=== PATIENT | female | born 1950 | race Caucasian/White ===

== ENCOUNTER → 2016-03-26 11:54 | Outpatient (CLI) | payer MEDICARE, BC ==
[2015-11-09 09:46] VITALS: BMI 35.5
[~2016-03-26 11:54] MED LIST: ACCUPRIL20 MG PO; ATIVAN1 MG PO; CALTRATE 600 M600 M1 PO; CYMBALTA60 MG PO; HYDROCODONE-APA1 TAB PO; LIPITOR10 MG PO; NAMENDA5 MG PO; NORVASC5 MG PO; OMEPRAZOLE20 M1 PO; SYNTHROID25 MCG PO; VITAMIN D2000 UNIT PO
== END | disposition home or self-care (01) ==
LOC: D.RT 11:54
DX: M54.5 Low back pain (principal); R06.02 Shortness of breath

== ENCOUNTER 2016-05-09 08:00 | Outpatient (CLI) | payer MEDICARE, BC ==
[2016-05-09 14:29] VITALS: Ht 160 cm
== END 2016-05-09 23:59 | disposition home or self-care (01) ==
LOC: D.OPS 08:00
DX: M81.0 Age-related osteoporosis without current pathological fracture (principal)

== ENCOUNTER 2016-07-23 13:56 | Outpatient (CLI) | payer MEDICARE, BC | END 2016-07-23 14:21 | LOC: D.MAMMO 13:56 | DX: Z12.31 Encounter for screening mammogram for malignant neoplasm of breast (principal) ==

== ENCOUNTER 2016-11-25 12:39 | Outpatient (CLI) | payer MEDICARE, BC ==
[2016-11-25] MEDS ORDERED: KLONOPIN0.5 MG PO (14:32)
[2016-11-25 14:36] VITALS: BP 183/86; BMI 39.0
[2017-01-21] MEDS ORDERED: LYRICA50 MG PO (10:35)
[2017-01-21] MEDS ORDERED: TOVIAZ8 MG PO (10:36)
== END 2016-11-25 14:35 | disposition home or self-care (01) ==
LOC: D.OPS 12:39
DX: M81.0 Age-related osteoporosis without current pathological fracture (principal)

== ENCOUNTER → 2016-12-30 18:45 | Outpatient (CLI) | payer MEDICARE, BC ==
[~2016-12-30 18:45] MED LIST changes: +KLONOPIN0.5 MG PO; +LYRICA50 MG PO; +TOVIAZ8 MG PO
== END | disposition home or self-care (01) ==
LOC: D.LABREF 18:45
DX: R31.9 Hematuria, unspecified (principal)

== ENCOUNTER → 2017-01-02 13:31 | Outpatient (CLI) | payer MEDICARE, BC | END | disposition home or self-care (01) | LOC: D.US 13:31 | DX: R31.9 Hematuria, unspecified (principal) ==

== ENCOUNTER 2017-01-22 05:18 | Day surgery (SDC) | payer MEDICARE, BC ==
[2017-01-21 11:51] LABS: HEMATOCRIT 44.3 % (36.0-48.0); HEMOGLOBIN 14.6 g/dL (12-16); MCH 33.2 pg (26.0-34.0); MCV 100.7 fL (80.0-100.0); MEAN PLATELET VOLUME 9.9 fL (7.4-10.4); RBC 4.4 10x6/uL (4.00-5.40); RDW 13.5 % (11.5-14.5); WBC 9.7 10x3/uL (4.8-10.8)
[~2017-01-22] VITALS: Ht 160 cm; Wt 102.5 kg
[2017-01-22 08:13] VITALS: BP 157/77; Ht 160 cm; Wt 102.5 kg
--- NOTE | 2017-01-22 09:29 | NUR ---
IV SITED WITH ULTRASOUND BY ANESTHESIA.
--- NOTE | 2017-01-22 11:09 | NUR ---
1110 DISCHARGE INSTRUCTIONS COMPLETE. PT HAS NO QUESTIONS OR CONCERNS AT THIS TIME. FOLLOW UP APPOINTMENT GIVEN. ESCORTED OUT BY VOLUNTEER.
--- NOTE | 2017-01-22 12:49 | OP ---
PATIENT NAME: PEGGY FIGUEROA MEDICAL RECORD: [id number] LOCATION:D.OPS ADMISSION DATE: SURGEON: KRIS COELLO MD DATE OF OPERATION: 01/22/2017 SURGEON: Kris Coello MD ANESTHESIA: MAC by Francisco J Camarena MD PREOPERATIVE DIAGNOSIS: Microhematuria. POSTOPERATIVE DIAGNOSIS: Microhematuria. PROCEDURE: Cystoscopy. FINDINGS: Bladder inflammation. No bladder tumors. BLOOD LOSS: None. CLINICAL HISTORY: This is a 66-year-old female who was initially referred for urinary incontinence including urgency and possibly some stress. She also had issues with nocturia times 2 to 3 and dyspareunia. She has had a hysterectomy in the past. While we examined her urinalysis, we noted that she had microscopic hematuria. She had an ultrasound of the kidneys, which was completely normal. We did an ultrasounds instead of a CT as SHE IS ALLERGIC TO IVP DYE. Urine cytology was performed and it was negative for high-grade urothelial carcinoma. She comes today to have cystoscopy to complete her hematuria workup. SHE IS ALLERGIC TO IVP DYE. She was given Ancef preparation room manager to the OR. DESCRIPTION OF PROCEDURE: The patient was given IV sedation. She was then placed in the dorsal lithotomy position and prepped and draped. A 17-Arabic cystoscope with 30-degree lens was used for visualization. There were single ureteral orifices on each side. No bladder tumors were seen. The bladder has diffuse inflammation, suggestive of interstitial cystitis. I will see the patient in followup in 1-2 weeks' time. If the incontinence and dyspareunia are still present, then she may benefit from a treatment with Rimso. TRANSINT:[id number] Voice Confirmation ID: [id number] DOCUMENT ID: [id number] KRIS COELLO MD at 1249 CC: [id number] DICTATION DATE: 01/22/17 1026 SAW STRAIGHTENER: 01/22/17 1243 [facility] 01/22/[address] [id number]
== END 2017-01-22 11:16 | disposition home or self-care (01) ==
LOC: D.OPS 05:18 → D.PAN 08:45 → D.OPS 08:45
PROVIDERS: Anesthesiology
DX: R31.29 Other microscopic hematuria (principal); I10 Essential (primary) hypertension; G47.30 Sleep apnea, unspecified; M19.90 Unspecified osteoarthritis, unspecified site; E66.01 Morbid (severe) obesity due to excess calories; Z68.41 Body mass index [BMI] 40.0-44.9, adult; Z01.812 Encounter for preprocedural laboratory examination

== ENCOUNTER → 2017-04-08 18:22 | Outpatient (CLI) | payer MEDICARE, BC ==
[2017-01-22 08:13] VITALS: BMI 40.1
== END | disposition home or self-care (01) ==
LOC: D.LABREF 18:22
DX: N39.0 Urinary tract infection, site not specified (principal)

== ENCOUNTER → 2017-06-04 18:43 | Outpatient (CLI) | payer MEDICARE, BC ==
[2017-01-22 08:13] VITALS: BMI 40.1
== END | disposition home or self-care (01) ==
LOC: D.LABREF 18:43
DX: N39.0 Urinary tract infection, site not specified (principal)

== ENCOUNTER 2017-06-19 13:35 | Outpatient (CLI) | payer MEDICARE, BC ==
[~2017-06-19] VITALS: Ht 160 cm; Wt 102.3 kg
[2017-06-19 14:08] VITALS: BP 131/56; Ht 160 cm; Wt 102.3 kg
== END 2017-06-19 14:43 | disposition home or self-care (01) ==
LOC: D.OPS 13:35
DX: M81.0 Age-related osteoporosis without current pathological fracture (principal)

== ENCOUNTER 2017-12-23 12:53 | Outpatient (CLI) | payer MEDICARE ==
[~2017-12-23] VITALS: Ht 157.5 cm; Wt 97.7 kg
[2017-12-23 14:09] VITALS: BP 140/71; Ht 157.5 cm; Wt 97.7 kg
== END 2017-12-23 14:15 | disposition home or self-care (01) ==
LOC: D.OPS 12:53
DX: M81.0 Age-related osteoporosis without current pathological fracture (principal); Z01.812 Encounter for preprocedural laboratory examination

== ENCOUNTER 2018-05-14 14:21 | Outpatient (CLI) | payer MEDICARE ==
[~2018-05-14] VITALS: Ht 157.5 cm; Wt 97.7 kg
[2018-05-14 14:47] VITALS: BP 152/79; Ht 157.5 cm; Wt 97.7 kg
== END 2018-05-14 15:40 | disposition home or self-care (01) ==
LOC: D.OPS 14:21
PROVIDERS: ATTEND Family Medicine
DX: M81.0 Age-related osteoporosis without current pathological fracture (principal)

== ENCOUNTER → 2019-01-13 13:30 | Outpatient (CLI) | payer MEDICAID ==
[2018-05-14 14:47] VITALS: BMI 39.4
== END | disposition home or self-care (01) ==
LOC: D.MAMMO 11:45
PROVIDERS: ATTEND Family Medicine
DX: Z12.31 Encounter for screening mammogram for malignant neoplasm of breast (principal)

== ENCOUNTER 2019-06-23 14:40 | Outpatient (CLI) | payer MEDICARE ==
[~2019-06-23] VITALS: Ht 157.5 cm; Wt 100.0 kg
[2019-06-23 14:59] VITALS: Ht 157.5 cm; Wt 100.0 kg
== END 2019-06-23 15:51 | disposition home or self-care (01) ==
LOC: D.OPS 14:40
PROVIDERS: ATTEND Family Medicine
DX: M81.0 Age-related osteoporosis without current pathological fracture (principal)